=== PATIENT | female | born 1945 | race Caucasian/White ===

== ENCOUNTER 2017-02-21 14:32 | Inpatient (IN) | payer OTHER ==
[~2017-02-21] VITALS: Ht 162.6 cm; Wt 91.5 kg
[2017-02-21 15:57] LABS: Basophils # (auto) 0.1 uL; Basophils % (auto) 0.7 % (0.0-2.0); Eosinophils # (auto) 0.3 uL; Eosinophils % (auto) 2.7 % (0.0-7.0); Hemoglobin 9.2 g/dL (12.2-16.2); Lymphocytes # (auto) 1.7 uL; Lymphocytes % (auto) 13.1 % (10.0-50.0); Mean Corpuscular Hemoglobin 30.8 pg (28.0-32.0); Mean Corpuscular Hgb Conc. 32.8 g/dL (32.0-36.0); Mean Corpuscular Volume 93.8 fL (80.0-100.0); Monocytes % (auto) 7.3 % (0.0-12.0); Neutrophils % (auto) 76.2 % (37.0-80.0); Nucleated Red Blood Cells % 0.1 %; Platelet Count (auto) 270 10^3/uL (140-450); Red Blood Cells 2.99 10^6/uL (4.0-5.20); Red Cell Distribution Width 16.7 % (11.8-14.3); White Blood Cell 13.1 10^3/uL (4.4-10.8)
[2017-02-21] MEDS ORDERED: SODIUM CHLORIDE 0.9% 1,000 ML IV ONE (16:13)
[2017-02-21 16:14] LABS: Calcium 8.5 mg/dL (8.5-10.1); Potassium 4.8 mmol/L (3.5-5.1)
[2017-02-21 16:18] LABS: Albumin 3.1 g/dL (3.4-5.0); BUN/Creatinine Ratio 17.4; Magnesium 2.2 mg/dL (1.6-2.6)
[2017-02-21 16:33] LABS: Bilirubin, Total 0.7 mg/dL (0.2-1.0); Total Protein 7.3 g/dL (6.4-8.2)
[2017-02-21] MEDS ORDERED: FUROSEMIDE 40 MG/4 ML VIAL IV ONE (16:45)
[2017-02-21 17:16] LABS: Urine Bacteria FEW /hpf (None Seen); Urine Blood 1+ /uL (Negative); Urine Specific Gravity 1.015 (1.001-1.035); Urine WBC 99 /hpf (0 - 5); Urine WBC Clumps PRESENT /hpf (None Seen)
[2017-02-21] MEDS ORDERED: TEMAZEPAM 15 MG CAP PO PRN (18:15)
[2017-02-21] MEDS ORDERED: NITROGLYCERIN 0.4 MG SL TAB SL PRN (18:15)
[2017-02-21] MEDS ORDERED: MORPHINE SULFATE 10 MG/ML INJ 1ML SDV IV PRN ×3 (18:15)
[2017-02-21] MEDS ORDERED: DEXTROSE (50%) 50ML SYRG IV PRN (18:15)
[2017-02-21] MEDS ORDERED: LACTULOSE 20Gm/30ML SOLN PO PRN (18:15)
[2017-02-21] MEDS ORDERED: LORazepam 0.5 MG TAB PO PRN (18:15)
[2017-02-21] MEDS ORDERED: PROMETHAZINE HCL 25 MG/ML 1ML IV PRN (18:15)
[2017-02-21] MEDS ORDERED: ENALAPRIL MALEATE 2.5 MG TAB PO ONE (18:45)
[2017-02-21] MEDS ORDERED: ASPirin 81 mg TAB PO ONE (18:45)
[2017-02-21] MEDS ORDERED: ENOXAPARIN SOD 100 MG/1 ML SYRINGE SC ONE (18:45)
[2017-02-21] MEDS ORDERED: PANTOPRAZOLE 40 MG TAB PO ONE (18:45)
[2017-02-21 18:56] LABS: CRP High Sensitivity 9.29 mg/dL (< 0.3)
[2017-02-21 18:57] LABS: Free T4 (Free Thyroxine) 1.11 ng/dL (0.89-1.76)
[2017-02-21 18:58] LABS: Free T3 2.65 pg/mL (2.3-4.2)
[2017-02-21] MEDS: ACCU-CHEK COMFORT CURVE STRIP VI SCH (22:40)
[2017-02-21] MEDS: InsuLIN REG 1unit/0.01ml Soln (100units/ml) SC SCH (22:40)
[2017-02-21] MEDS: CARVEDILOL 3.125 MG TAB PO SCH (22:45)
[2017-02-22 05:55] LABS: Basophils # (auto) 0.1 uL; Basophils % (auto) 0.6 % (0.0-2.0); Eosinophils # (auto) 0.4 uL; Eosinophils % (auto) 3.4 % (0.0-7.0); Hematocrit 28.2 % (36.0-46.0); Hemoglobin 9.4 g/dL (12.2-16.2); Lymphocytes # (auto) 1.7 uL; Mean Corpuscular Hemoglobin 31.2 pg (28.0-32.0); Mean Corpuscular Hgb Conc. 33.2 g/dL (32.0-36.0); Mean Corpuscular Volume 93.9 fL (80.0-100.0); Monocytes # (auto) 0.8 uL; Monocytes % (auto) 6.8 % (0.0-12.0); Neutrophils # (auto) 8.2 uL; Neutrophils % (auto) 74.2 % (37.0-80.0); Nucleated Red Blood Cells % 0.1 %; Platelet Count (auto) 240 10^3/uL (140-450); Red Cell Distribution Width 16.8 % (11.8-14.3); White Blood Cell 11.1 10^3/uL (4.4-10.8)
[2017-02-22 06:23] LABS: Albumin 2.8 g/dL (3.4-5.0); BUN/Creatinine Ratio 19.3; Bilirubin, Total 0.5 mg/dL (0.2-1.0); Calcium 8.4 mg/dL (8.5-10.1); Potassium 4.2 mmol/L (3.5-5.1); Total Protein 6.5 g/dL (6.4-8.2)
[2017-02-22] MEDS: InsuLIN REG 1unit/0.01ml Soln (100units/ml) SC SCH ×4 (07:00→22:00)
[2017-02-22] MEDS: ACCU-CHEK COMFORT CURVE STRIP VI SCH ×4 (07:08→22:16)
[2017-02-22] MEDS ORDERED: EPOETIN ALFA 10,000 UNIT/1 ML VIAL ONE (08:16)
[2017-02-22] MEDS ORDERED: EPOETIN ALFA 10,000 UNIT/1 ML VIAL IV ONE (08:30)
[2017-02-22] MEDS ORDERED: FUROSEMIDE 40 MG/4 ML VIAL IV SCH (10:00)
[2017-02-22] MEDS ORDERED: ENOXAPARIN SOD 30 MG/0.3 ML SYRINGE SC SCH (10:00)
[2017-02-22] MEDS: ASPirin 81 mg TAB PO SCH (10:24)
[2017-02-22] MEDS: CARVEDILOL 3.125 MG TAB PO SCH ×2 (10:25→22:00)
[2017-02-22] MEDS: PANTOPRAZOLE 40 MG TAB PO SCH (10:40)
[2017-02-22] MEDS: ENALAPRIL MALEATE 2.5 MG TAB PO SCH (10:40)
[2017-02-22] MEDS: FUROSEMIDE 40 MG/4 ML VIAL IV SCH (10:41)
[2017-02-22] MEDS: NITROGLYCERIN 0.2MG/HR TOPICAL PATCH TD SCH (10:41)
[2017-02-22 12:07] LABS: INR 2.01 (0.9-1.15); Prothrombin Time 22.1 sec (9.37-12.3)
[2017-02-22] MEDS ORDERED: IODIXANOL 320MG/ML 100ML BTL IV ONE (12:35)
[2017-02-22] MEDS ORDERED: LIDOCAINE 2%HCL (LOCAL ANESTH.) INJ 20ML MDV ONE (12:35)
[2017-02-22] MEDS ORDERED: B-COMPLEX W/ C & FOLIC ACID(NEPHROVITE TAB) PO ONE (14:45)
[2017-02-22] MEDS ORDERED: SODIUM CHL 0.9% 1000 ML BAG XX ONE (14:45)
[2017-02-22] MEDS ORDERED: ENOXAPARIN SOD 100 MG/1 ML SYRINGE SC SCH (18:00)
[2017-02-22] MEDS: CALCIUM ACETATE 667 MG CAP PO SCH (18:24)
[2017-02-22] MEDS ORDERED: LEVOFLOXACIN 500 MG TAB PO ONE (20:15)
[2017-02-23 01:00] VITALS: BP 129/53
[2017-02-23] MEDS ORDERED: METO-159 PO (02:08)
[2017-02-23] MEDS ORDERED: HYDR25TA35 PO (02:08)
[2017-02-23] MEDS ORDERED: PRAV20TA3 PO (02:08)
[2017-02-23] MEDS ORDERED: OMEP20CA74 PO (02:08)
[2017-02-23] MEDS ORDERED: AMLO5TAB2 PO (02:08)
[2017-02-23] MEDS: FUROSEMIDE 40 MG/4 ML VIAL IV SCH (03:39)
[2017-02-23 04:00] VITALS: BP 141/61
[2017-02-23] MEDS: InsuLIN REG 1unit/0.01ml Soln (100units/ml) SC SCH ×4 (06:19→22:12)
[2017-02-23] MEDS: ACCU-CHEK COMFORT CURVE STRIP VI SCH ×4 (06:19→22:11)
[2017-02-23 07:30] VITALS: BP 139/67
[2017-02-23] MEDS: CALCIUM ACETATE 667 MG CAP PO SCH ×3 (08:00→17:20)
[2017-02-23] MEDS ORDERED: IOHEXOL 350 MG/ML 100ML IJ ONE (08:47)
[2017-02-23] MEDS ORDERED: LIDOCAINE 2%HCL (LOCAL ANESTH.) INJ 20ML MDV ONE (08:47)
[2017-02-23] MEDS ORDERED: ANGIOMAX 250 MG VIAL IV ONE (09:24)
[2017-02-23] MEDS ORDERED: MIDAZOLAM HCL 1MG/1ML-2 ML VIAL ONE (09:25)
[2017-02-23] MEDS ORDERED: SODIUM CHL 0.9% 50 ML ONE (09:25)
[2017-02-23] MEDS ORDERED: fentaNYL CITRATE 100 MCG/2 ML VL ONE (09:25)
[2017-02-23] MEDS ORDERED: diphenhdrAMINE HCL 50 MG/1 ML VL ONE (09:33)
[2017-02-23] MEDS ORDERED: IODIXANOL 320MG/ML 100ML BTL IV ONE (09:56)
[2017-02-23] MEDS: NITROGLYCERIN 0.2MG/HR TOPICAL PATCH TD SCH (10:00)
[2017-02-23] MEDS: ENALAPRIL MALEATE 2.5 MG TAB PO SCH (10:00)
[2017-02-23] MEDS: CARVEDILOL 3.125 MG TAB PO SCH ×2 (10:00→22:11)
[2017-02-23] MEDS: ASPirin 81 mg TAB PO SCH (10:00)
[2017-02-23] MEDS: PANTOPRAZOLE 40 MG TAB PO SCH (10:00)
[2017-02-23] MEDS: B-COMPLEX W/ C & FOLIC ACID(NEPHROVITE TAB) PO SCH (10:00)
[2017-02-23] MEDS ORDERED: HEPARIN 1,000 UNITS/ml 1ML VIAL ONE ×2 (10:00→10:15)
[2017-02-23] MEDS ORDERED: CLOPIDOGREL 300 MG TAB ONE ×2 (10:14)
[2017-02-23] MEDS ORDERED: EPTIFIBATIDE INJ (2MG/ML) 10ML VIAL IV ONE (10:24)
[2017-02-23] MEDS ORDERED: SODIUM CHLORIDE 0.9% 1,000 ML IV SCH ×2 (10:50→11:15)
[2017-02-23] MEDS ORDERED: MORPHINE SULFATE 10 MG/ML INJ 1ML SDV IV PRN (11:00)
[2017-02-23] MEDS ORDERED: MORPHINE SULF INJ 2 MG/ML SYRINGE 1ML IV PRN (11:00)
[2017-02-23] MEDS ORDERED: NITROGLYCERIN 0.4 MG SL TAB SL PRN ×2 (11:00)
[2017-02-23 12:14] VITALS: BP 156/67
[2017-02-23] MEDS ORDERED: ALBUMIN 25% 200 ML IV ONE (15:09)
[2017-02-23 15:49] VITALS: BP 125/61
[2017-02-23] MEDS ORDERED: ALBUMIN 25% 100 ML IV SCH (16:00)
[2017-02-23] MEDS ORDERED: WARFARIN SODIUM 2.5 MG TAB PO ONE (17:00)
[2017-02-23] MEDS: cefTRIAXone 1GM/10ml IVPUSH 10 ML IV SCH (17:21)
[2017-02-23 19:58] VITALS: BP 151/61
[2017-02-23] MEDS: LEVOFLOXACIN 250 MG TAB PO SCH (21:08)
[2017-02-23] MEDS ORDERED: traMADol HCL 50 MG TAB PO ONE (21:45)
[2017-02-23] MEDS ORDERED: diphenhdrAMINE HCL 25 MG CAP PO ONE (21:45)
[2017-02-24] VITALS: BP 116/64
[2017-02-24] MEDS: LORazepam 0.5 MG TAB PO PRN (00:08)
[2017-02-24 04:00] VITALS: BP 147/6
[2017-02-24] MEDS: InsuLIN REG 1unit/0.01ml Soln (100units/ml) SC SCH ×4 (07:00→22:07)
[2017-02-24] MEDS: ACCU-CHEK COMFORT CURVE STRIP VI SCH ×4 (07:07→22:08)
[2017-02-24] MEDS: CALCIUM ACETATE 667 MG CAP PO SCH ×3 (08:09→17:26)
[2017-02-24] MEDS: cefTRIAXone 1GM/10ml IVPUSH 10 ML IV SCH (08:09)
[2017-02-24 08:29] LABS: INR 1.45 (0.9-1.15); Partial Thromboplastin Time 33.7 sec (22.64-33.71); Prothrombin Time 15.9 sec (9.37-12.3)
[2017-02-24 08:48] LABS: Albumin 3.5 g/dL (3.4-5.0); BUN/Creatinine Ratio 10.1; Bilirubin, Total 0.7 mg/dL (0.2-1.0); Calcium 8.7 mg/dL (8.5-10.1); Potassium 3.7 mmol/L (3.5-5.1); Total Protein 6.9 g/dL (6.4-8.2)
[2017-02-24 09:39] LABS: Basophils # (auto) 0.1 uL; Basophils % (auto) 0.7 % (0.0-2.0); Eosinophils # (auto) 0.3 uL; Hematocrit 28.3 % (36.0-46.0); Hemoglobin 9.4 g/dL (12.2-16.2); Lymphocytes # (auto) 1.6 uL; Lymphocytes % (auto) 16.4 % (10.0-50.0); Mean Corpuscular Hemoglobin 31.1 pg (28.0-32.0); Mean Corpuscular Hgb Conc. 33.2 g/dL (32.0-36.0); Mean Corpuscular Volume 93.8 fL (80.0-100.0); Monocytes # (auto) 1.1 uL; Monocytes % (auto) 10.8 % (0.0-12.0); Neutrophils % (auto) 69.1 % (37.0-80.0); Platelet Count (auto) 250 10^3/uL (140-450); Red Blood Cells 3.01 10^6/uL (4.0-5.20); Red Cell Distribution Width 16.6 % (11.8-14.3)
[2017-02-24] MEDS: CLOPIDOGREL BISULFATE 75 MG TAB PO SCH (09:59)
[2017-02-24] MEDS: PANTOPRAZOLE 40 MG TAB PO SCH (09:59)
[2017-02-24] MEDS: FUROSEMIDE 40 MG/4 ML VIAL IV SCH (09:59)
[2017-02-24] MEDS: NITROGLYCERIN 0.2MG/HR TOPICAL PATCH TD SCH (10:00)
[2017-02-24] MEDS: ENALAPRIL MALEATE 2.5 MG TAB PO SCH (10:00)
[2017-02-24] MEDS: B-COMPLEX W/ C & FOLIC ACID(NEPHROVITE TAB) PO SCH (10:01)
[2017-02-24] MEDS: ASPirin 81 mg TAB PO SCH (10:01)
[2017-02-24] MEDS: CARVEDILOL 3.125 MG TAB PO SCH (10:02)
[2017-02-24 11:51] VITALS: BP 137/63
[2017-02-24 15:46] VITALS: BP 153/78
[2017-02-24] MEDS ORDERED: WARFARIN SODIUM 1 MG TAB PO ONE (17:00)
[2017-02-24 20:00] VITALS: BP 146/64
[2017-02-24 22:35] VITALS: BP 146/64
[2017-02-25] MEDS: ZOLPIDEM TARTRATE 5 MG TAB PO PRN (01:36)
[2017-02-25 05:00] VITALS: BP 126/62
[2017-02-25] MEDS ORDERED: HYDROmorphone HCL 2 MG/ML VL IV ONE (06:30)
[2017-02-25] MEDS: InsuLIN REG 1unit/0.01ml Soln (100units/ml) SC SCH ×4 (06:46→22:02)
[2017-02-25] MEDS: ACCU-CHEK COMFORT CURVE STRIP VI SCH ×4 (06:46→22:02)
[2017-02-25 07:04] LABS: Basophils # (auto) 0 uL; Basophils % (auto) 0.3 % (0.0-2.0); Eosinophils # (auto) 0.3 uL; Eosinophils % (auto) 2.1 % (0.0-7.0); Hematocrit 32.1 % (36.0-46.0); Hemoglobin 10.7 g/dL (12.2-16.2); Lymphocytes # (auto) 1.1 uL; Lymphocytes % (auto) 8.7 % (10.0-50.0); Mean Corpuscular Hemoglobin 31.1 pg (28.0-32.0); Mean Corpuscular Hgb Conc. 33.2 g/dL (32.0-36.0); Mean Corpuscular Volume 93.7 fL (80.0-100.0); Monocytes # (auto) 1.1 uL; Monocytes % (auto) 8.6 % (0.0-12.0); Neutrophils # (auto) 10.3 uL; Neutrophils % (auto) 80.3 % (37.0-80.0); Platelet Count (auto) 287 10^3/uL (140-450); Red Blood Cells 3.43 10^6/uL (4.0-5.20); Red Cell Distribution Width 17.1 % (11.8-14.3); White Blood Cell 12.8 10^3/uL (4.4-10.8)
[2017-02-25 07:09] LABS: INR 1.46 (0.9-1.15); Partial Thromboplastin Time 35.1 sec (22.64-33.71)
[2017-02-25 07:14] LABS: BUN/Creatinine Ratio 9.7; Calcium 9.7 mg/dL (8.5-10.1); Potassium 3.4 mmol/L (3.5-5.1)
[2017-02-25 07:37] LABS: Albumin 3.6 g/dL (3.4-5.0); Bilirubin, Direct 0.3 mg/dL (0-0.2); Bilirubin, Total 0.8 mg/dL (0.2-1.0); Phosphorus 2.7 mg/dL (2.5-4.90); Total Protein 7.6 g/dL (6.4-8.2)
[2017-02-25] MEDS: CALCIUM ACETATE 667 MG CAP PO SCH ×3 (08:42→17:30)
[2017-02-25 08:46] VITALS: BP 104/38
[2017-02-25] MEDS: CLOPIDOGREL BISULFATE 75 MG TAB PO SCH (09:47)
[2017-02-25] MEDS: B-COMPLEX W/ C & FOLIC ACID(NEPHROVITE TAB) PO SCH (09:47)
[2017-02-25] MEDS: cefTRIAXone 1GM/10ml IVPUSH 10 ML IV SCH (09:47)
[2017-02-25] MEDS: PANTOPRAZOLE 40 MG TAB PO SCH (09:48)
[2017-02-25] MEDS: ASPirin 81 mg TAB PO SCH (09:48)
[2017-02-25] MEDS: ENALAPRIL MALEATE 2.5 MG TAB PO SCH (09:55)
[2017-02-25] MEDS: FUROSEMIDE 40 MG/4 ML VIAL IV SCH (09:56)
[2017-02-25] MEDS: METOPROLOL SUCCINATE XL 50 MG TAB PO SCH (09:56)
[2017-02-25] MEDS: NITROGLYCERIN 0.2MG/HR TOPICAL PATCH TD SCH (09:56)
[2017-02-25 13:00] VITALS: BP_DIAS 104
[2017-02-25] MEDS ORDERED: EPOETIN ALFA 3,000 UNIT/1 ML VIAL IV ONE (13:30)
[2017-02-25] MEDS ORDERED: SODIUM CHL 0.9% 1000 ML BAG XX ONE (13:30)
[2017-02-25] MEDS ORDERED: ONDANSETRON HCL 4 MG/2 ML VIAL IV PRN (13:45)
[2017-02-25] MEDS ORDERED: EPOETIN ALFA 2,000 UNIT/1 ML VIAL IV ONE (13:45)
[2017-02-25 16:09] VITALS: BP 126/73
[2017-02-25] MEDS ORDERED: WARFARIN SODIUM 2 MG TAB PO ONE (17:00)
[2017-02-25 20:00] VITALS: BP 116/55
[2017-02-25] MEDS: LEVOFLOXACIN 250 MG TAB PO SCH (21:05)
[2017-02-25 22:00] VITALS: BP 116/55
[2017-02-26] MEDS: LORazepam 0.5 MG TAB PO PRN (00:25)
[2017-02-26] MEDS: ZOLPIDEM TARTRATE 5 MG TAB PO PRN (01:12)
[2017-02-26 05:00] VITALS: BP 107/67
[2017-02-26] MEDS ORDERED: diphenhdrAMINE HCL 25 MG CAP PO ONE (05:15)
[2017-02-26] MEDS: InsuLIN REG 1unit/0.01ml Soln (100units/ml) SC SCH ×4 (06:47→22:00)
[2017-02-26] MEDS: ACCU-CHEK COMFORT CURVE STRIP VI SCH ×4 (06:47→22:00)
[2017-02-26 08:01] VITALS: BP 130/54
[2017-02-26] MEDS: cefTRIAXone 1GM/10ml IVPUSH 10 ML IV SCH (08:47)
[2017-02-26] MEDS: CALCIUM ACETATE 667 MG CAP PO SCH ×3 (08:47→17:37)
[2017-02-26] MEDS: FUROSEMIDE 40 MG/4 ML VIAL IV SCH (10:11)
[2017-02-26] MEDS: ASPirin 81 mg TAB PO SCH (10:11)
[2017-02-26] MEDS: PANTOPRAZOLE 40 MG TAB PO SCH (10:11)
[2017-02-26] MEDS: CLOPIDOGREL BISULFATE 75 MG TAB PO SCH (10:11)
[2017-02-26] MEDS: B-COMPLEX W/ C & FOLIC ACID(NEPHROVITE TAB) PO SCH (10:11)
[2017-02-26] MEDS: METOPROLOL SUCCINATE XL 50 MG TAB PO SCH (10:12)
[2017-02-26] MEDS: NITROGLYCERIN 0.2MG/HR TOPICAL PATCH TD SCH (10:12)
[2017-02-26] MEDS: ENALAPRIL MALEATE 2.5 MG TAB PO SCH (10:13)
[2017-02-26 11:55] VITALS: BP 126/52
[2017-02-26] MEDS: diphenhdrAMINE HCL 25 MG CAP PO PRN ×3 (12:04→23:04)
[2017-02-26] MEDS: HYDROcodone-ACET 5/325MG TAB PO PRN ×3 (12:05→22:55)
[2017-02-26 15:28] LABS: INR 1.53 (0.9-1.15); Partial Thromboplastin Time 34.3 sec (22.64-33.71); Prothrombin Time 16.7 sec (9.37-12.3)
[2017-02-26 15:34] LABS: BUN/Creatinine Ratio 10.5; Calcium 8.9 mg/dL (8.5-10.1); Potassium 3.6 mmol/L (3.5-5.1)
[2017-02-26 16:06] LABS: Hepatitis B Surface Antigen Negative (Negative)
[2017-02-26 16:33] LABS: Hepatitis C Antibody Negative (Negative)
[2017-02-26 16:34] LABS: Hepatitis B Core IgM Positive
[2017-02-26 16:35] VITALS: BP 103/49
[2017-02-26 16:35] LABS: Hepatitis A Ab IgM Negative
[2017-02-26] MEDS ORDERED: WARFARIN SODIUM 5 MG TAB PO ONE (17:00)
[2017-02-26 20:00] VITALS: BP 106/34
[2017-02-26 21:42] VITALS: BP 106/34
[2017-02-27] MEDS: HYDROcodone-ACET 5/325MG TAB PO PRN ×3 (04:55→15:00)
[2017-02-27 05:54] LABS: Basophils # (auto) 0.1 uL; Eosinophils # (auto) 0.6 uL; Eosinophils % (auto) 6.6 % (0.0-7.0); Hematocrit 29.3 % (36.0-46.0); Hemoglobin 9.8 g/dL (12.2-16.2); Lymphocytes # (auto) 1.4 uL; Lymphocytes % (auto) 15.7 % (10.0-50.0); Mean Corpuscular Hemoglobin 31.1 pg (28.0-32.0); Mean Corpuscular Hgb Conc. 33.4 g/dL (32.0-36.0); Mean Corpuscular Volume 93.1 fL (80.0-100.0); Monocytes % (auto) 10.9 % (0.0-12.0); Neutrophils # (auto) 5.9 uL; Neutrophils % (auto) 65.8 % (37.0-80.0); Platelet Count (auto) 250 10^3/uL (140-450); Red Blood Cells 3.15 10^6/uL (4.0-5.20); Red Cell Distribution Width 16.6 % (11.8-14.3); White Blood Cell 8.9 10^3/uL (4.4-10.8)
[2017-02-27 06:12] LABS: INR 1.71 (0.9-1.15); Partial Thromboplastin Time 35.9 sec (22.64-33.71); Prothrombin Time 18.7 sec (9.37-12.3)
[2017-02-27 06:32] LABS: BUN/Creatinine Ratio 7.8; Calcium 8.4 mg/dL (8.5-10.1); Potassium 3.8 mmol/L (3.5-5.1)
[2017-02-27] MEDS: InsuLIN REG 1unit/0.01ml Soln (100units/ml) SC SCH ×4 (06:46→22:00)
[2017-02-27] MEDS: ACCU-CHEK COMFORT CURVE STRIP VI SCH ×4 (06:46→22:18)
[2017-02-27 07:48] VITALS: BP 121/50
[2017-02-27] MEDS: CALCIUM ACETATE 667 MG CAP PO SCH ×3 (08:24→17:45)
[2017-02-27] MEDS: diphenhdrAMINE HCL 25 MG CAP PO PRN ×2 (08:24→15:00)
[2017-02-27] MEDS: cefTRIAXone 1GM/10ml IVPUSH 10 ML IV SCH (09:03)
[2017-02-27] MEDS: PANTOPRAZOLE 40 MG TAB PO SCH (10:00)
[2017-02-27] MEDS: FUROSEMIDE 40 MG/4 ML VIAL IV SCH (10:18)
[2017-02-27] MEDS: ASPirin 81 mg TAB PO SCH (10:19)
[2017-02-27] MEDS: NITROGLYCERIN 0.2MG/HR TOPICAL PATCH TD SCH (10:19)
[2017-02-27] MEDS: CLOPIDOGREL BISULFATE 75 MG TAB PO SCH (10:19)
[2017-02-27] MEDS: B-COMPLEX W/ C & FOLIC ACID(NEPHROVITE TAB) PO SCH (10:19)
[2017-02-27] MEDS: ENALAPRIL MALEATE 2.5 MG TAB PO SCH (10:20)
[2017-02-27] MEDS: METOPROLOL SUCCINATE XL 50 MG TAB PO SCH (10:20)
[2017-02-27] MEDS ORDERED: LIDOCAINE 2%HCL (LOCAL ANESTH.) INJ 20ML MDV ONE (12:00)
[2017-02-27] MEDS ORDERED: MIDAZOLAM HCL 1MG/1ML-2 ML VIAL ONE (12:07)
[2017-02-27] MEDS ORDERED: fentaNYL CITRATE 100 MCG/2 ML VL ONE (12:08)
[2017-02-27 16:43] VITALS: BP 121/87
[2017-02-27] MEDS ORDERED: WARFARIN SODIUM 5 MG TAB PO ONE (17:00)
[2017-02-27 20:00] VITALS: BP 132/59
[2017-02-27 22:00] VITALS: BP 132/59
[2017-02-28] MEDS: diphenhdrAMINE HCL 25 MG CAP PO PRN (00:36)
[2017-02-28] MEDS: HYDROcodone-ACET 5/325MG TAB PO PRN ×3 (00:36→23:11)
[2017-02-28 05:00] VITALS: BP 131/62
[2017-02-28] MEDS: ACCU-CHEK COMFORT CURVE STRIP VI SCH ×4 (06:36→22:00)
[2017-02-28] MEDS: InsuLIN REG 1unit/0.01ml Soln (100units/ml) SC SCH ×5 (06:36→22:00)
[2017-02-28 08:00] VITALS: BP 141/71
[2017-02-28] MEDS: CALCIUM ACETATE 667 MG CAP PO SCH ×3 (08:50→17:47)
[2017-02-28 08:51] LABS: BUN/Creatinine Ratio 9.4; Calcium 8.9 mg/dL (8.5-10.1); Potassium 3.6 mmol/L (3.5-5.1)
[2017-02-28 08:56] LABS: INR 1.91 (0.9-1.15); Partial Thromboplastin Time 38.2 sec (22.64-33.71)
[2017-02-28] MEDS: cefTRIAXone 1GM/10ml IVPUSH 10 ML IV SCH (09:07)
[2017-02-28] MEDS: NITROGLYCERIN 0.2MG/HR TOPICAL PATCH TD SCH (10:00)
[2017-02-28] MEDS: FUROSEMIDE 40 MG/4 ML VIAL IV SCH (10:00)
[2017-02-28] MEDS: ENALAPRIL MALEATE 2.5 MG TAB PO SCH (10:00)
[2017-02-28] MEDS: PANTOPRAZOLE 40 MG TAB PO SCH (10:00)
[2017-02-28] MEDS: METOPROLOL SUCCINATE XL 50 MG TAB PO SCH (10:00)
[2017-02-28] MEDS: ASPirin 81 mg TAB PO SCH (10:14)
[2017-02-28] MEDS: CLOPIDOGREL BISULFATE 75 MG TAB PO SCH (10:14)
[2017-02-28] MEDS: B-COMPLEX W/ C & FOLIC ACID(NEPHROVITE TAB) PO SCH (10:21)
[2017-02-28] MEDS ORDERED: SODIUM CHL 0.9% 1000 ML BAG XX ONE (10:45)
[2017-02-28 17:00] VITALS: BP 130/68
[2017-02-28] MEDS ORDERED: WARFARIN SODIUM 5 MG TAB PO ONE (17:00)
[2017-02-28] MEDS ORDERED: LIDOCAINE 2%HCL (LOCAL ANESTH.) INJ 20ML MDV IJ ONE (18:15)
[2017-02-28 21:43] VITALS: BP 140/72
[2017-02-28] MEDS: ZOLPIDEM TARTRATE 5 MG TAB PO PRN (23:45)
[2017-03-01 05:00] VITALS: BP 133/85
[2017-03-01] MEDS: HYDROcodone-ACET 5/325MG TAB PO PRN ×2 (06:43→18:42)
[2017-03-01 06:58] LABS: Basophils # (auto) 0.1 uL; Basophils % (auto) 1.2 % (0.0-2.0); Eosinophils # (auto) 0.3 uL; Eosinophils % (auto) 3.7 % (0.0-7.0); Hematocrit 32.5 % (36.0-46.0); Hemoglobin 10.6 g/dL (12.2-16.2); Lymphocytes # (auto) 1.6 uL; Lymphocytes % (auto) 21.8 % (10.0-50.0); Mean Corpuscular Hgb Conc. 32.6 g/dL (32.0-36.0); Monocytes # (auto) 1.1 uL; Monocytes % (auto) 14.7 % (0.0-12.0); Neutrophils # (auto) 4.3 uL; Neutrophils % (auto) 58.6 % (37.0-80.0); Platelet Count (auto) 268 10^3/uL (140-450); Red Blood Cells 3.42 10^6/uL (4.0-5.20); White Blood Cell 7.4 10^3/uL (4.4-10.8)
[2017-03-01] MEDS: ACCU-CHEK COMFORT CURVE STRIP VI SCH ×4 (07:00→22:03)
[2017-03-01] MEDS: InsuLIN REG 1unit/0.01ml Soln (100units/ml) SC SCH ×4 (07:00→22:03)
[2017-03-01 07:08] LABS: INR 1.72 (0.9-1.15); Partial Thromboplastin Time 39.2 sec (22.64-33.71); Prothrombin Time 18.8 sec (9.37-12.3)
[2017-03-01 09:00] VITALS: BP 120/58
[2017-03-01] MEDS: CALCIUM ACETATE 667 MG CAP PO SCH ×3 (09:40→18:04)
[2017-03-01] MEDS: ASPirin 81 mg TAB PO SCH (09:41)
[2017-03-01] MEDS: B-COMPLEX W/ C & FOLIC ACID(NEPHROVITE TAB) PO SCH (09:41)
[2017-03-01] MEDS: CLOPIDOGREL BISULFATE 75 MG TAB PO SCH (09:41)
[2017-03-01] MEDS: PANTOPRAZOLE 40 MG TAB PO SCH (09:41)
[2017-03-01] MEDS: METOPROLOL SUCCINATE XL 50 MG TAB PO SCH (09:42)
[2017-03-01] MEDS: ENALAPRIL MALEATE 2.5 MG TAB PO SCH (09:42)
[2017-03-01] MEDS: NITROGLYCERIN 0.2MG/HR TOPICAL PATCH TD SCH (09:43)
[2017-03-01 12:00] VITALS: BP 131/62
[2017-03-01 15:01] LABS: INR 2.15 (0.9-1.15); Partial Thromboplastin Time 37.4 sec (22.64-33.71); Prothrombin Time 23.6 sec (9.37-12.3)
[2017-03-01] MEDS: FUROSEMIDE 40 MG/4 ML VIAL IV SCH (15:19)
[2017-03-01 16:12] LABS: Basophils # (auto) 0.1 uL; Basophils % (auto) 0.9 % (0.0-2.0); Eosinophils # (auto) 0.3 uL; Eosinophils % (auto) 4.3 % (0.0-7.0); Hematocrit 29.9 % (36.0-46.0); Hemoglobin 9.8 g/dL (12.2-16.2); Lymphocytes # (auto) 1.5 uL; Lymphocytes % (auto) 18.9 % (10.0-50.0); Mean Corpuscular Hemoglobin 30.7 pg (28.0-32.0); Mean Corpuscular Hgb Conc. 32.9 g/dL (32.0-36.0); Mean Corpuscular Volume 93.2 fL (80.0-100.0); Monocytes # (auto) 1.1 uL; Monocytes % (auto) 13.9 % (0.0-12.0); Nucleated Red Blood Cells % 0.1 %; Platelet Count (auto) 289 10^3/uL (140-450); White Blood Cell 8.1 10^3/uL (4.4-10.8)
[2017-03-01 16:20] LABS: BUN/Creatinine Ratio 8.2; Calcium 8.3 mg/dL (8.5-10.1); Potassium 3.6 mmol/L (3.5-5.1)
[2017-03-01] MEDS ORDERED: WARFARIN SODIUM 2.5 MG TAB PO ONE (17:00)
[2017-03-01 17:30] VITALS: BP 129/53
[2017-03-01 22:00] VITALS: BP 139/98
[2017-03-01] MEDS: diphenhdrAMINE HCL 25 MG CAP PO PRN (22:04)
[2017-03-02] MEDS: LORazepam 0.5 MG TAB PO PRN (00:27)
[2017-03-02 05:00] VITALS: BP 138/55
[2017-03-02] MEDS: HYDROcodone-ACET 5/325MG TAB PO PRN (05:17)
[2017-03-02] MEDS: InsuLIN REG 1unit/0.01ml Soln (100units/ml) SC SCH ×4 (05:25→22:00)
[2017-03-02] MEDS: ACCU-CHEK COMFORT CURVE STRIP VI SCH ×4 (05:59→22:00)
[2017-03-02] MEDS: CALCIUM ACETATE 667 MG CAP PO SCH ×3 (08:02→18:23)
[2017-03-02 09:00] VITALS: BP 142/52
[2017-03-02] MEDS: ASPirin 81 mg TAB PO SCH (09:41)
[2017-03-02] MEDS: CLOPIDOGREL BISULFATE 75 MG TAB PO SCH (09:41)
[2017-03-02] MEDS: B-COMPLEX W/ C & FOLIC ACID(NEPHROVITE TAB) PO SCH (09:41)
[2017-03-02] MEDS: FUROSEMIDE 40 MG/4 ML VIAL IV SCH (09:46)
[2017-03-02] MEDS: ENALAPRIL MALEATE 2.5 MG TAB PO SCH (09:47)
[2017-03-02] MEDS: METOPROLOL SUCCINATE XL 50 MG TAB PO SCH (09:48)
[2017-03-02] MEDS: NITROGLYCERIN 0.2MG/HR TOPICAL PATCH TD SCH (09:49)
[2017-03-02] MEDS: PANTOPRAZOLE 40 MG TAB PO SCH (09:49)
[2017-03-02] MEDS ORDERED: SODIUM CHL 0.9% 1000 ML BAG XX ONE (12:00)
[2017-03-02] MEDS ORDERED: EPOETIN ALFA 10,000 UNIT/1 ML VIAL IV ONE (12:00)
[2017-03-02 13:00] VITALS: BP 106/54
[2017-03-02] MEDS ORDERED: GABAPENTIN 300 MG CAP PO STA (13:44)
[2017-03-02 17:00] VITALS: BP 123/61
[2017-03-02 21:54] VITALS: BP 132/56
[2017-03-03 05:19] VITALS: BP 122/50
[2017-03-03] MEDS: InsuLIN REG 1unit/0.01ml Soln (100units/ml) SC SCH ×3 (06:08→18:33)
[2017-03-03] MEDS: HYDROcodone-ACET 5/325MG TAB PO PRN ×2 (06:08→17:13)
[2017-03-03] MEDS: ACCU-CHEK COMFORT CURVE STRIP VI SCH ×3 (06:08→17:00)
[2017-03-03 08:19] LABS: Basophils # (auto) 0.1 uL; Basophils % (auto) 0.8 % (0.0-2.0); Eosinophils # (auto) 0.5 uL; Hemoglobin 10.3 g/dL (12.2-16.2); Lymphocytes # (auto) 1.8 uL; Lymphocytes % (auto) 19.6 % (10.0-50.0); Mean Corpuscular Hemoglobin 30.9 pg (28.0-32.0); Mean Corpuscular Hgb Conc. 33.1 g/dL (32.0-36.0); Mean Corpuscular Volume 93.5 fL (80.0-100.0); Monocytes # (auto) 1.1 uL; Monocytes % (auto) 11.6 % (0.0-12.0); Neutrophils # (auto) 5.9 uL; Nucleated Red Blood Cells % 0.1 %; Platelet Count (auto) 291 10^3/uL (140-450); Red Blood Cells 3.32 10^6/uL (4.0-5.20); Red Cell Distribution Width 16.5 % (11.8-14.3); White Blood Cell 9.3 10^3/uL (4.4-10.8)
[2017-03-03 08:38] LABS: BUN/Creatinine Ratio 9.7; Calcium 8.6 mg/dL (8.5-10.1); Potassium 3.8 mmol/L (3.5-5.1)
[2017-03-03 09:00] VITALS: BP 119/42
[2017-03-03] MEDS: PANTOPRAZOLE 40 MG TAB PO SCH (10:00)
[2017-03-03] MEDS: FUROSEMIDE 40 MG/4 ML VIAL IV SCH (10:05)
[2017-03-03] MEDS: CALCIUM ACETATE 667 MG CAP PO SCH ×3 (10:05→18:33)
[2017-03-03] MEDS: ASPirin 81 mg TAB PO SCH (10:06)
[2017-03-03] MEDS: CLOPIDOGREL BISULFATE 75 MG TAB PO SCH (10:06)
[2017-03-03] MEDS: ENALAPRIL MALEATE 2.5 MG TAB PO SCH (10:06)
[2017-03-03] MEDS: B-COMPLEX W/ C & FOLIC ACID(NEPHROVITE TAB) PO SCH (10:06)
[2017-03-03] MEDS: METOPROLOL SUCCINATE XL 50 MG TAB PO SCH (10:07)
[2017-03-03] MEDS: NITROGLYCERIN 0.2MG/HR TOPICAL PATCH TD SCH (10:08)
[2017-03-03 10:56] LABS: INR 1.98 (0.9-1.15); Partial Thromboplastin Time 37.5 sec (22.64-33.71); Prothrombin Time 21.7 sec (9.37-12.3)
[2017-03-03 13:00] VITALS: BP 126/50
[2017-03-03 17:36] VITALS: BP 127/56
[2017-03-03] MEDS ORDERED: GABAPENTIN 300 MG CAP PO SCH (18:00)
== END 2017-03-03 20:10 | disposition left against medical advice (07) | DRG 246 ==
LOC: ER 14:32 → OVERFLOW 14:33 → DOU IN ICU 02-23 00:50 → EAST 02-24 17:48 → TELE-EAST 02-24 22:15
PROVIDERS: ADMIT Internal Medicine; ATTEND Internal Medicine Pulmonary Disease
PROC: 5A1D70Z Performance of Urinary Filtration, Intermittent, Less than 6 Hours Per Day (ICD-10-PCS; 2017-02-22)
PROC: 027034Z Dilation of Coronary Artery, One Artery with Drug-eluting Intraluminal Device, Percutaneous Approach (ICD-10-PCS; principal; 2017-02-23)
PROC: 4A023N7 Measurement of Cardiac Sampling and Pressure, Left Heart, Percutaneous Approach (ICD-10-PCS; 2017-02-23)
PROC: B2111ZZ Fluoroscopy of Multiple Coronary Arteries using Low Osmolar Contrast (ICD-10-PCS; 2017-02-23)
PROC: 5A1D70Z Performance of Urinary Filtration, Intermittent, Less than 6 Hours Per Day (ICD-10-PCS; 2017-02-23)
PROC: 5A1D70Z Performance of Urinary Filtration, Intermittent, Less than 6 Hours Per Day (ICD-10-PCS; 2017-02-26)
PROC: 5A1D70Z Performance of Urinary Filtration, Intermittent, Less than 6 Hours Per Day (ICD-10-PCS; 2017-02-28)
PROC: 5A1D70Z Performance of Urinary Filtration, Intermittent, Less than 6 Hours Per Day (ICD-10-PCS; 2017-03-02)
DX: I21.4 Non-ST elevation (NSTEMI) myocardial infarction (principal); J96.00 Acute respiratory failure, unspecified whether with hypoxia or hypercapnia; I13.2 Hypertensive heart and chronic kidney disease with heart failure and with stage 5 chronic kidney disease, or end stage renal disease; N17.9 Acute kidney failure, unspecified; E44.1 Mild protein-calorie malnutrition; I07.1 Rheumatic tricuspid insufficiency; E11.21 Type 2 diabetes mellitus with diabetic nephropathy; E11.51 Type 2 diabetes mellitus with diabetic peripheral angiopathy without gangrene; N18.6 End stage renal disease; I50.33 Acute on chronic diastolic (congestive) heart failure; N39.0 Urinary tract infection, site not specified; E87.1 Hypo-osmolality and hyponatremia; I27.20 Pulmonary hypertension, unspecified; B96.20 Unspecified Escherichia coli [E. coli] as the cause of diseases classified elsewhere; D63.1 Anemia in chronic kidney disease; E05.90 Thyrotoxicosis, unspecified without thyrotoxic crisis or storm; E11.22 Type 2 diabetes mellitus with diabetic chronic kidney disease; E78.5 Hyperlipidemia, unspecified; Z68.34 Body mass index [BMI] 34.0-34.9, adult; E87.6 Hypokalemia; G47.33 Obstructive sleep apnea (adult) (pediatric); I25.10 Atherosclerotic heart disease of native coronary artery without angina pectoris; E66.01 Morbid (severe) obesity due to excess calories; Z53.21 Procedure and treatment not carried out due to patient leaving prior to being seen by health care provider; K59.00 Constipation, unspecified; F41.9 Anxiety disorder, unspecified; R79.89 Other specified abnormal findings of blood chemistry; Z16.23 Resistance to quinolones and fluoroquinolones; R74.0 Nonspecific elevation of levels of transaminase and lactic acid dehydrogenase [LDH]; Z22.322 Carrier or suspected carrier of Methicillin resistant Staphylococcus aureus; Z99.2 Dependence on renal dialysis; Z79.01 Long term (current) use of anticoagulants; Z86.711 Personal history of pulmonary embolism; Z89.512 Acquired absence of left leg below knee; Z89.612 Acquired absence of left leg above knee; Z95.5 Presence of coronary angioplasty implant and graft; Z88.5 Allergy status to narcotic agent; Z79.899 Other long term (current) drug therapy
CPT/HCPCS: 36415; 36600; 51702; 71045; 71046; 76705; 80048; 80053; 80061; 80074; 80076; 81001; 82150; 82306; 82378; 82550; 82565; 82805; 82962; 83036; 83690; 83735; 83880; 83970; 84100; 84439; 84443; 84481; 84484; 85025; 85610; 85652; 85730; 86141; 86850; 86900; 86901; 87081; 87086; 87088; 87186; 90935; 92928; 93005; 93306; 93458; 93930; 94660; 94761; 96374; 99152; C1874; G0378; J0885; J1642; J1815; J2250; J2405; Q4081; Q9967